=== PATIENT | female | born 1965 | race Caucasian/White ===

== ENCOUNTER 2018-11-17 14:31 | Outpatient (CLI) | payer BC ==
--- NOTE | 2018-11-17 15:07 | RAD ---
PA AND LATERAL CHEST: History: Fall with history of coughing up blood. FINDINGS: Lungs are clear. No pleural effusion, contusion or pneumothorax is evident. There is multilevel spond ylosis of the thoracic spine. No definite acute osseous abnormality is evident. IMPRESSION: No acute cardiopulmonary abnormality. POS: H
== END 2018-11-17 14:32 | disposition home or self-care (01) ==
LOC: MADRAD 14:31
PROVIDERS: ATTEND Nurse Practitioner Family
DX: R07.1 Chest pain on breathing (principal); R05 Cough; S20.20XA Contusion of thorax, unspecified, initial encounter
CPT/HCPCS: 71046